=== PATIENT | female | born 1970 | race Caucasian/White ===

== ENCOUNTER 2018-09-02 15:12 | Outpatient (CLI) | payer BC ==
--- NOTE | 2018-09-02 15:45 | RAD ---
TWO VIEWS CHEST 09/02/18 PROVIDED CLINICAL HISTORY: Preop. FINDINGS: The cardiac and mediastinal silhouette is within normal limits. Lungs appear clear. No pleural fluid or pneumothorax apparent. IMPRESSION: No evidence for an acute cardiopulmonary process. POS: [facility]
--- NOTE | 2018-09-02 15:52 | MMO ---
Bilateral MAMMO Bilat Screen [facility]. CLINICAL HISTORY: Patient is 48 years old and is seen for screening. The patient has no family history of breast cancer. The patient has no personal history of cancer. The patient has a history of bilateral Implants in 2005. VIEWS: The views performed were: bilateral craniocaudal; bilateral mediolateral oblique; and bilateral Implant displaced with tomosynthesis. MAMMOGRAM FINDINGS: There are scattered fibroglandular densities. There are no suspicious masses, suspicious calcifications, or new areas of architectural distortion. IMPRESSION: THERE IS NO MAMMOGRAPHIC EVIDENCE OF MALIGNANCY. A ROUTINE FOLLOW-UP MAMMOGRAM IN 1 YEAR IS RECOMMENDED. THE RESULTS OF THIS EXAM WERE SENT TO THE PATIENT. ACR BI-RADS Category 1 - Negative MAMMOGRAPHY NOTE: 1. A negative mammogram report should not delay a biopsy if a dominant of clinically suspicious mass is present. 2. Approximately 10% to 15% of breast cancers are not detected by mammography. 3. Adenosis and dense breasts may obscure an underlying neoplasm.
== END 2018-09-02 15:13 | disposition home or self-care (01) ==
LOC: BICRAD 15:12
PROVIDERS: ATTEND Family Medicine
DX: Z01.818 Encounter for other preprocedural examination (principal); Z12.31 Encounter for screening mammogram for malignant neoplasm of breast; Z98.82 Breast implant status
CPT/HCPCS: 71046; 77063; 77067